=== PATIENT | female | born 2000 | race Caucasian/White ===

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

== ENCOUNTER 2020-07-02 21:14 | Emergency (ER) | payer OTHER ==
--- NOTE | 2020-07-02 22:03 | XRAY Report ---
PROCEDURE: Chest 1 View X-Ray INDICATIONS: Chest Pain TECHNIQUE: One view of the chest was acquired. COMPARISON: None FINDINGS: Surgical changes and devices: None. Lungs and pleura: No pleural effusions or pneumothorax. Lungs are clear. Mediastinum: Mediastinal contours appear normal. Heart size is normal. Bones and chest wall: No suspicious bony lesions. Overlying soft tissues appear unremarkable. IMPRESSION: No acute cardiopulmonary disease process. Reviewed by: Bhavana Beck MD, PhD on 07/02/2020 10:01 PM [facility] Approved by: Bhavana Beck MD, PhD on 07/02/2020 10:01 PM [facility] Station ID: [id number]
[2020-07-02 22:07] LABS: BASOPHILS % (AUTO) 0.4 %; EOSINOPHILS # (AUTO) 0.1 10^3/uL (0.0-0.7); EOSINOPHILS % (AUTO) 0.7 %; HGB - HEMOGLOBIN 12.9 g/dL (12.0-16.0); LYMPHOCYTES # (AUTO) 1.9 10^3/uL (1.5-3.5); LYMPHOCYTES % (AUTO) 21.3 %; MEAN CORPUSCULAR HEMOGLOBIN 30.3 pg (27.0-31.0); MEAN CORPUSCULAR VOLUME 91.8 fL (81.0-99.0); MEAN PLATELET VOLUME 10.4 fL (7.9-10.8); MONOCYTES # (AUTO) 0.6 10^3/uL (0.0-1.0); MONOCYTES % (AUTO) 6.4 %; NEUTROPHILS # (AUTO) 6.4 10^3/uL (1.5-6.6); NEUTROPHILS % (AUTO) 70.8 %; PLT - PLATELET COUNT 261 10^3/uL (130-450); RED BLOOD COUNT 4.26 10^6/uL (4.20-5.40); RED CELL DISTRIBUTION WIDTH 12.1 % (12.0-15.0); WHITE BLOOD COUNT 9.1 x10^3/uL (4.8-10.8)
[2020-07-02 22:23] LABS: ALBUMIN 4.5 g/dL (3.2-5.5); ALBUMIN/GLOBULIN RATIO 1.5 (1.0-2.2); BILIRUBIN,TOTAL 0.7 mg/dL (0.2-1.0); CALCIUM 9.1 mg/dL (8.5-10.3); CREATININE 0.6 mg/dL (0.4-1.0); TOTAL PROTEIN 7.5 g/dL (6.7-8.2)
[2020-07-02 22:32] LABS: HCG,QUALITATIVE BLOOD NEGATIVE
--- NOTE | 2020-07-02 23:40 | ED Physician Documentation ---
PD HPI CHEST PAIN - Stated complaint Stated Complaint: CP - Chief complaint Chief Complaint: Cardiac - History obtained from History obtained from: Patient - History of Present Illness Timing - onset: How many weeks ago (2) Timing - onset during: Rest Timing - duration: Weeks (2) Timing - details: Gradual onset, Still present, Waxing and waning Quality: Sharp, Pain Location: Left chest Radiation: Neck, Left upper extremity Improved by: Other (distraction) Worsened by: Other (rest and work) Associated symptoms: No: Shortness of air, Diaphoresis, Nausea, Vomiting, Feeling faint / dizzy, General Weakness, Palpitations Similar symptoms before: Has not had sx before Recently seen: Not recently seen - Additional information Additional information: 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 She is concerned about the possibility of this being related to her heart. She does wear a mask at work and she has 2 jobs wears mask nearly continuously. She notes that if she is away from her work and not wearing her mask her pains will get better she also notes that when she gets home from work and lays down and this is when she will noticed the pain most frequently. She has not had syncope or near syncope. She reports that she has been feeling well otherwise and does not feel ill in any way. She is still working her 2 jobs. Review of Systems Constitutional: denies: Fever Eyes: denies: Decreased vision Ears: denies: Ear pain Nose: denies: Rhinorrhea / runny nose, Congestion Throat: denies: Sore throat Cardiac: reports: Chest pain / pressure. 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 : None HEENT: None Psych: None Musculoskeletal: None Derm: None - Past Surgical History Past Surgical History: Yes General: Other - Present Medications Home Medications: Ambulatory Orders Medication Instructions Recorded Confirmed Azithromycin [Zithromax] 250 mg PO DAILY #6 tablet 12/14/19 ISOtretinoin [Isotretinoin] 10 mg PO DAILY 12/14/19 12/14/19 - Allergies Allergies/Adverse Reactions: Allergies Allergy/AdvReac Type Severity Reaction Status Date / Time No Known Drug Allergies Allergy Verified 07/02/20 21:29 - Social History Does the pt smoke?: No Smoking Status: Never smoker Does the pt drink ETOH?: Yes Does the pt have substance abuse?: No - Immunizations Immunizations are current?: Yes - POLST Patient has POLST: No PD ED PE NORMAL - Vitals Vital signs reviewed: Yes (normal ) - General General: Alert and oriented X 3, No acute distress, Well developed/nourished - HEENT HEENT: Atraumatic, PERRL, EOMI - Neck Neck: Supple, no meningeal sign, No bony TTP - Cardiac Cardiac: RRR, No murmur - Respiratory Respiratory: No respiratory distress, Clear bilaterally, Other (There is chest wall tenderness reproducing the symptoms the patient is having along the left costosternal margin and radiating into the subclavicular area on the left side.) - Abdomen Abdomen: Normal bowel sounds, Soft, Non tender, Non distended, No organomegaly - Back Back: No CVA TTP, No spinal TTP - Derm Derm: Normal color, Warm and dry, No rash - Extremities Extremities: No deformity, No edema - Neuro Neuro: Alert and oriented X 3, 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, No motor deficit, No sensory deficit, Normal speech Eye Opening: Spontaneous Motor: Obeys Commands Verbal: Oriented GCS Score: 15 - Psych Psych: Normal mood, Normal affect Results - Vitals Vitals: Vital Signs - 24 hr 07/02/20 07/02/20 07/03/20 21:26 22:00 00:25 Temperature 36.1 C L 36.5 C Heart Rate 75 63 64 Respiratory 18 16 18 Rate Blood Pressure 126/77 128/82 H 125/80 O2 Saturation 97 100 100 Oxygen O2 Source Room air - EKG (time done) 2118 Rate: Rate (enter#) (72) Rhythm: NSR Ischemia: Normal ST segments Compare to prior EKG: Old EKG unavailable Computer interpretation: Agree with computer - Labs Labs: Laboratory Tests 07/02/20 07/02/20 07/02/20 22:02 22:02 22:02 WBC 9.1 RBC 4.26 Hgb 12.9 Hct 39.1 MCV 91.8 MCH 30.3 MCHC 33.0 RDW 12.1 Plt Count 261 MPV 10.4 Neut # (Auto) 6.4 Lymph # (Auto) 1.9 [place] # (Auto) 0.6 Eos # (Auto) 0.1 Baso # (Auto) 0.0 Absolute Nucleated RBC 0.00 Nucleated RBC % 0.0 Sodium 136 Potassium 4.0 Chloride 102 Carbon Dioxide 24 Anion Gap 10.0 BUN 10 Creatinine 0.6 Estimated GFR (MDRD) 127 Glucose 90 Calcium 9.1 Total Bilirubin 0.7 AST 20 ALT 21 Alkaline Phosphatase 61 Troponin I High Sens < 2.3 L Total Protein 7.5 Albumin 4.5 Globulin 3.0 Albumin/Globulin Ratio 1.5 Lipase 25 Serum HCG, Qual 07/02/20 22:02 WBC RBC Hgb Hct MCV MCH MCHC RDW Plt Count MPV Neut # (Auto) Lymph # (Auto) [place] # (Auto) Eos # (Auto) Baso # (Auto) Absolute Nucleated RBC Nucleated RBC % Sodium Potassium Chloride Carbon Dioxide Anion Gap BUN Creatinine Estimated GFR (MDRD) Glucose Calcium Total Bilirubin AST ALT Alkaline Phosphatase Troponin I High Sens Total Protein Albumin Globulin Albumin/Globulin Ratio Lipase Serum HCG, Qual NEGATIVE PD MEDICAL DECISION MAKING - ED course Complexity details: reviewed results, re-evaluated patient, considered differential, d/w patient ED course: 20-year-old female with left-sided chest pain comes to the emerge department with concerns about this being the possibility of it being a heart attack. She has a normal electrocardiogram and negative troponin and chest wall tenderness consistent with costochondritis. She has been wearing a mask sometimes as long as 16 hours a day. She is administered a dose of dexamethasone and Toradol. She indicates that her level of pain is not high and she has not taken medication for this but she was more concerned with what this pain was about. Departure - Departure Disposition: 01 Home, Self Care Clinical Impression: Costochondritis, acute Condition: Stable Instructions: ED Chest Pain Costochondritis Follow-Up: JEFF Rosario [Provider Group] Discharge Date/Time: 07/03/20 00:30
[2020-07-02] MEDS ORDERED: KETOROLAC 60 MG/2 ML VIAL IM STA (23:45)
[2020-07-02] MEDS ORDERED: DEXAMETHASONE 10 MG/ML VIAL PO STA (23:45)
[2020-07-02] MEDS ORDERED: CHERRY SYRUP 10 ML UDC PO ONE (23:45)
[2020-07-03 00:50] VITALS: BP 125/80
== END 2020-07-03 00:30 | disposition home or self-care (01) ==
LOC: ED 21:14
DX: M94.0 Chondrocostal junction syndrome [Tietze] (principal)
CPT/HCPCS: 36415; 71045; 80053; 83690; 84484; 84703; 85025; 93005; 96372; 99284; A9270

== ENCOUNTER 2021-01-19 23:24 | Emergency (ER) | payer OTHER ==
[2021-01-19] MEDS ORDERED: ACETAMINOPHEN 325 MG TABLET PO STA (23:28)
--- OUTSIDE RECORDS SUMMARY | 2021-01-19 23:28 | EXTERNAL MEDICAL SUMMARY RPT | Continuity of Care Document ---
:2000 Demographics Phone Unavailable Preferred Language Lebanese Marital Status Unknown Protestant Affiliation Unknown Race Unknown Ethnic Group Unknown Author Organization [facility] Address [address] [place] [address] Phone Care Team Providers Name Role Phone Amee Penaloza Unavailable Unavailable Allergies Encounters Medications Problems Procedures date description facility 20201110 [facility] Results Vital Signs date measurement value source 20201110 weight_standard 83.92 lb 20201110 weight_metric 38.06 kg 20201110 temperature_standard 98.1 F 20201110 temperature_metric 36.72 C 20201110 respiration_rate 19 /min 20201110 height_standard 64 in 20201110 height_metric 162.56 cm 20201110 heart_rate 70 /min 20201110 BP_systolic 120 mm[Hg] 20201110 BP_diastolic 73 mm[Hg] 20201110 BMI 31.7 kg/m2
--- OUTSIDE RECORDS SUMMARY | 2021-01-19 23:46 | EXTERNAL MEDICAL SUMMARY RPT | Continuity of Care Document ---
:2000 Demographics Phone Unavailable Preferred Language Andorran Marital Status Unknown Worship Affiliation Unknown Race Unknown Ethnic Group Unknown Author Organization [facility] Address [address] [place] [address] Phone Care Team Providers Name Role Phone Amee Penaloza Unavailable Unavailable Allergies Encounters Medications Problems Procedures date description facility 20201110 [facility] Results Vital Signs date measurement value source 20201110 weight_standard 83.92 lb 20201110 weight_metric 38.06 kg 20201110 temperature_standard 98.1 F 20201110 temperature_metric 36.72 C 20201110 respiration_rate 19 /min 20201110 height_standard 64 in 20201110 height_metric 162.56 cm 20201110 heart_rate 70 /min 20201110 BP_systolic 120 mm[Hg] 20201110 BP_diastolic 73 mm[Hg] 20201110 BMI 31.7 kg/m2
[2021-01-20 00:01] LABS: RAPID STREP SCREEN POSITIVE (Negative)
--- NOTE | 2021-01-20 00:24 | ED Physician Documentation ---
History of Present Illness - Stated complaint Stated Complaint: THROAT PX, FEVER - Chief complaint Chief Complaint: General - History obtained from History obtained from: Patient - Additonal information Additional information: 20-year-old woman, previously healthy presents with throat pain over the past 3 days, worse on the right versus the left with associated subjective fever and chills. Pain is constant, gradual in onset, worse with swallowing and talking, without associated cough. 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 : None HEENT: None Psych: None Musculoskeletal: None Derm: None - Past Surgical History Past Surgical History: Yes General: Other - Present Medications Home Medications: Ambulatory Orders Medication Instructions Recorded Confirmed methocarbamoL [Robaxin] 500 mg PO Q6H PRN 01/19/21 01/19/21 Amoxicillin 500 mg PO BID #20 tab 01/20/21 - Allergies Allergies/Adverse Reactions: Allergies Allergy/AdvReac Type Severity Reaction Status Date / Time No Known Drug Allergies Allergy Verified 07/02/20 21:29 - Social History Does the pt smoke?: No Smoking Status: Never smoker Does the pt drink ETOH?: Yes Does the pt have substance abuse?: No - Immunizations Immunizations are current?: Yes - POLST Patient has POLST: No PD ED PE NORMAL - Vitals Vital signs reviewed: Yes - General General: Alert and oriented X 3, No acute distress, Well developed/nourished - HEENT HEENT: Atraumatic, PERRL, EOMI, Ears normal, Moist mucous membranes, Other (Bilateral white tonsillar exudate) - Neck Neck: Other (Tender anterior bilateral cervical lymphadenopathy) - Cardiac Cardiac: RRR - Respiratory Respiratory: No respiratory distress, Clear bilaterally Results - Vitals Vitals: Vital Signs - 24 hr 01/19/21 01/19/21 01/20/21 23:34 23:46 00:46 Temperature 37.2 C 37.2 C 37.2 C Heart Rate 98 95 88 Respiratory 16 16 16 Rate Blood Pressure 132/70 H 130/69 125/65 O2 Saturation 100 100 100 Oxygen O2 Source Room air - Labs Labs: Laboratory Tests 01/19/21 23:42 Group A Strep Rapid POSITIVE H PD MEDICAL DECISION MAKING - ED course ED course: 20-year-old woman presents with strep infection. Antibiotics given. Return precautions given. f/u pmd Departure - Departure Disposition: 01 Home, Self Care Clinical Impression: Strep pharyngitis Condition: Good Instructions: ED Strep Pharyngitis Conf Prescriptions: Amoxicillin 500 mg PO BID #20 tab Comments: You were seen in the emergency department for strep throat. Please take your antibiotics as prescribed and make sure that you hydrate well. Return to the emergency department if you develop any new or worsening symptoms or have other concerns. Follow-up with your primary doctor this week. Forms: Activity restrictions Discharge Date/Time: 01/20/21 00:47
[2021-01-20 00:47] VITALS: BP 125/65
== END 2021-01-20 00:47 | disposition home or self-care (01) ==
LOC: ED 23:24
DX: J02.0 Streptococcal pharyngitis (principal)
CPT/HCPCS: 87430; 99283; 99284; A9270

== ENCOUNTER 2021-10-24 22:14 | Emergency (ER) | payer OTHER ==
[2021-10-24] MEDS ORDERED: SODIUM CHLORIDE 0.9% 1,000 ML IV STA (23:04)
[2021-10-24] MEDS ORDERED: ONDANSETRON 4 MG/2 ML VIAL IVP STA (23:04)
[2021-10-24 23:16] LABS: HCG UR QUAL NEGATIVE
[2021-10-24 23:26] LABS: BASOPHILS % (AUTO) 0.4 %; EOSINOPHILS # (AUTO) 0.2 10^3/uL (0.0-0.7); EOSINOPHILS % (AUTO) 1.8 %; HCT - HEMATOCRIT 39.3 % (37.0-47.0); HGB - HEMOGLOBIN 13.1 g/dL (12.0-16.0); LYMPHOCYTES % (AUTO) 24.5 %; MEAN CORPUSCULAR HEMOGLOBIN 30.8 pg (27.0-31.0); MEAN CORPUSCULAR HGB CONC 33.3 g/dL (32.0-36.0); MEAN CORPUSCULAR VOLUME 92.3 fL (81.0-99.0); MEAN PLATELET VOLUME 10.7 fL (7.9-10.8); MONOCYTES # (AUTO) 0.7 10^3/uL (0.0-1.0); MONOCYTES % (AUTO) 8.3 %; NEUTROPHILS # (AUTO) 5.3 10^3/uL (1.5-6.6); NEUTROPHILS % (AUTO) 64.6 %; PLT - PLATELET COUNT 254 10^3/uL (130-450); RED BLOOD COUNT 4.26 10^6/uL (4.20-5.40); RED CELL DISTRIBUTION WIDTH 12.9 % (12.0-15.0); WHITE BLOOD COUNT 8.2 x10^3/uL (4.8-10.8)
[2021-10-24 23:40] LABS: ALBUMIN 3.9 g/dL (3.2-5.5); ALBUMIN/GLOBULIN RATIO 1.4 (1.0-2.2); BILIRUBIN,TOTAL 0.6 mg/dL (0.2-1.0); CALCIUM 8.3 mg/dL (8.5-10.3); CREATININE 0.7 mg/dL (0.4-1.0); POTASSIUM 3.9 mmol/L (3.5-5.0); TOTAL PROTEIN 6.6 g/dL (6.7-8.2)
[2021-10-24] MEDS ORDERED: LOPERAMIDE 2 MG CAPSULE PO STA (23:44)
--- NOTE | 2021-10-25 00:12 | ED Physician Documentation ---
PD HPI NVD - Stated complaint Stated Complaint: DIARRHEA,VOMITING - Chief complaint Chief Complaint: Abd Pain - History obtained from History obtained from: Patient - Additonal information Additional information: Patient presenting for evaluation of nonbloody and nonbilious vomiting x1 day and watery diarrhea x2 days. Patient has been having 6-7 loose stools for the past Few days, denies blood. She has associated abdominal cramping prior to bowel movement. She tried eating rice and soup today but had 3 episodes of emesis consisting of her food. She denies any sick contacts. She believes that her symptoms could possibly be related to eating some chicken Lonnie she had at home recently.She denies abdominal pain other than prior to when she has had a bowel movement. She denies concern for . She denies dysuria, vaginal discharge or hematuria.No recent fever, cough or congestion. She called the nurse advice line for and they recommended she be evaluated in the emergency department. Review of Systems Constitutional: denies: Fever Cardiac: denies: Chest pain / pressure Respiratory: denies: Dyspnea, Cough GI: reports: Abdominal Pain (Cramping), Vomiting, Diarrhea. 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 - Present Medications Home Medications: Ambulatory Orders Medication Instructions Recorded Confirmed methocarbamoL [Robaxin] 500 mg PO Q6H PRN 01/19/21 01/19/21 Amoxicillin 500 mg PO BID #20 tab 01/20/21 Loperamide [Imodium] 2 mg PO Q4HR PRN 2 Days #12 tab 10/25/21 Ondansetron Odt [Zofran] 4 mg TL Q6H PRN #10 tablet 10/25/21 - Allergies Allergies/Adverse Reactions: Allergies Allergy/AdvReac Type Severity Reaction Status Date / Time No Known Drug Allergies Allergy Verified 10/24/21 22:30 - Social History Does the pt smoke?: No Smoking Status: Never smoker Does the pt drink ETOH?: Yes Does the pt have substance abuse?: No - Immunizations Immunizations are current?: Yes - POLST Patient has POLST: No PD ED PE NORMAL - General General: Alert and oriented X 3, No acute distress, Well developed/nourished - HEENT HEENT: Atraumatic, PERRL, EOMI, Other (Dry oral mucosa) - Neck Neck: Supple, no meningeal sign - Cardiac Cardiac: RRR, No murmur - Respiratory Respiratory: No respiratory distress, Clear bilaterally - Abdomen Abdomen: Normal bowel sounds, Soft, Non tender, Non distended - Back Back: No CVA TTP - Derm Derm: Normal color, Warm and dry - Extremities Extremities: No deformity - Neuro Neuro: Alert and oriented X 3 - Psych Psych: Normal mood Results - Vitals Vitals: Vital Signs - 24 hr 10/24/21 10/25/21 22:28 00:30 Temperature 36.2 C L Heart Rate 89 68 Respiratory 18 18 Rate Blood Pressure 127/87 H 117/70 O2 Saturation 98 100 Oxygen O2 Source Room air - Labs Labs: Laboratory Tests 10/24/21 10/24/21 10/24/21 23:07 23:19 23:19 WBC 8.2 RBC 4.26 Hgb 13.1 Hct 39.3 MCV 92.3 MCH 30.8 MCHC 33.3 RDW 12.9 Plt Count 254 MPV 10.7 Neut # (Auto) 5.3 Lymph # (Auto) 2.0 [place] # (Auto) 0.7 Eos # (Auto) 0.2 Baso # (Auto) 0.0 Absolute Nucleated RBC 0.00 Nucleated RBC % 0.0 Sodium 137 Potassium 3.9 Chloride 106 Carbon Dioxide 23 Anion Gap 8.0 BUN 11 Creatinine 0.7 Estimated GFR (MDRD) 106 Glucose 96 Calcium 8.3 L Total Bilirubin 0.6 AST 21 ALT 24 Alkaline Phosphatase 63 Total Protein 6.6 L Albumin 3.9 Globulin 2.7 Albumin/Globulin Ratio 1.4 Lipase 26 Urine HCG, Qual NEGATIVE PD MEDICAL DECISION MAKING - ED course ED course: Patient presenting for evaluation of nausea vomiting and diarrhea for 3 days. Her vital signs appear stable.Her oral mucosa appears dry and she did have 3 episodes of vomiting today thus IV fluids were given along with antiemetics. Labs were reviewed and essentially normal. Repeat abdominal exam is benign. I do not think she warrants advanced imaging at this time. Patient is feeling better in the emergency department is able to tolerate p.o. intake. Discussed continuing with supportive care with close outpatient follow-up. Patient is also advised of strict return precautions particularly for the development of pain or worsening of her symptoms. Departure - Departure Disposition: 01 Home, Self Care Clinical Impression: Diarrhea Qualifiers: Diarrhea type: presumed infectious Qualified Code(s): R19.7 - Diarrhea, unspecified Vomiting Qualifiers: Vomiting type: unspecified Nausea presence: with nausea Qualified Code(s): R1 1.2 - Nausea with vomiting, unspecified Condition: Stable Instructions: ED Diet Vomiting Diarrhea Prescriptions: Loperamide [Imodium] 2 mg PO Q4HR PRN 2 Days #12 tab PRN Reason: Diarrhea Ondansetron Odt [Zofran] 4 mg TL Q6H PRN #10 tablet PRN Reason: Nausea / Vomiting Comments: Please follow the discharge instructions for recommendations on diet for vomiting and diarrhea. Use the medications prescribed as needed. Your prescriptions were sent to the [facility] in [place].Return to the emergency department if you develop pain, blood in your stool or vomit, not able to tolerate food or liquids or with any concerns. Discharge Date/Time: 10/25/21 00:30
[2021-10-25 00:31] VITALS: BP 117/70
== END 2021-10-25 00:30 | disposition home or self-care (01) ==
LOC: ED 22:14
DX: R11.2 Nausea with vomiting, unspecified (principal); R19.7 Diarrhea, unspecified
CPT/HCPCS: 36415; 80053; 81025; 83690; 85025; 96374; 99282; 99283; A9270